=== PATIENT | male | born 1955 | race Asian ===

== ENCOUNTER 2017-09-08 11:03 | Inpatient (IN) | payer BC ==
[~2017-09-08] VITALS: Ht 162.6 cm; Wt 67.8 kg
[2017-09-08 12:45] LABS: BASOPHIL % 0.3 % (0-2); RED CELL DISTRIBUTION WIDTH 13.6 % (11.5-14.5)
[2017-09-08 12:48] LABS: PLATELET COUNT 149 x10^3mcL (130-400)
[2017-09-08 13:09] LABS: T3 TOTAL 0.83 ng/mL
[2017-09-08 13:11] LABS: CK-MB 0.9 ng/mL (0-3.6); FREE T4 1.32 ng/dL (0.76-1.46); FREE THYROXINE INDEX 4.1 ug/dL (1.4-4.5); T4(THYROXINE) 11.6 ug/dL (4.7-13.3)
[2017-09-08 13:22] LABS: CALCIUM 9.2 mg/dL (8.5-10.1); CARBON DIOXIDE 24.6 mmol/L (21-32); CHLORIDE SERUM 92 mmol/L (98-107); CREATININE SERUM 1.2 mg/dL (0.7-1.3); GFR1 > 60 mL/min; GLUCOSE SERUM 120 mg/dL (74-106); SODIUM SERUM 131 mmol/L (136-145)
[2017-09-08 13:33] LABS: ALBUMIN 4.4 g/dL (3.4-5.0); ALKALINE PHOSPHATASE 143 U/L (46-116); ALT/SGPT 69 U/L (16-63); AST/SGOT 31 U/L (15-37); BILIRUBIN TOTAL 2.8 mg/dL (0.20-1.00)
[2017-09-08 13:42] LABS: TOTAL PROTEIN, SERUM 10.1 g/dL (6.4-8.2)
[2017-09-08 14:08] LABS: C REACTIVE PROTEIN 19.8 mg/dL (<=0.9)
[2017-09-08 14:20] LABS: ERYTHROCYTE SED RATE 36 mm/hr (0-20)
[2017-09-08 15:01] VITALS: BP 159/97
[2017-09-08 15:03] VITALS: Ht 162.6 cm; Wt 67.8 kg
[2017-09-08 15:48] LABS: microscopic required? YES; urine erythrocyte TRACE (NEGATIVE)
[2017-09-08 15:51] LABS: AMPHETAMINE QUAL UR NONE DETECTED (NEG <=1000)
[2017-09-08 16:12] LABS: CHOLESTEROL/HDL RATIO 4.7; MAGNESIUM 2.6 mg/dL (1.8-2.4); PHOSPHOROUS 2.7 mg/dL (2.5-4.9)
[2017-09-08 21:20] VITALS: BP 115/72
[2017-09-09 05:54] VITALS: BP 127/67
[2017-09-09 06:53] LABS: BASOPHIL % 0.3 % (0-2); RED CELL DISTRIBUTION WIDTH 13.3 % (11.5-14.5)
[2017-09-09 07:06] LABS: ALKALINE PHOSPHATASE 92 U/L (46-116); ALT/SGPT 40 U/L (16-63); AST/SGOT 23 U/L (15-37); BILIRUBIN TOTAL 1.26 mg/dL (0.20-1.00); CALCIUM 7.6 mg/dL (8.5-10.1); CARBON DIOXIDE 20.9 mmol/L (21-32); CHLORIDE SERUM 107 mmol/L (98-107); CREATININE SERUM 0.9 mg/dL (0.7-1.3); GFR1 > 60 mL/min; GLUCOSE SERUM 91 mg/dL (74-106); MAGNESIUM 2.2 mg/dL (1.8-2.4); PHOSPHOROUS 2.1 mg/dL (2.5-4.9); POTASSIUM SERUM 3.8 mmol/L (3.5-5.1); SODIUM SERUM 138 mmol/L (136-145); TOTAL PROTEIN, SERUM 6.7 g/dL (6.4-8.2)
[2017-09-09 07:07] LABS: ALBUMIN 2.8 g/dL (3.4-5.0)
[2017-09-09 08:08] LABS: PLATELET COUNT 125 x10^3mcL (130-400)
[2017-09-09 08:26] VITALS: BP 129/72
[2017-09-09 13:15] VITALS: BP 133/76
[2017-09-09 17:59] VITALS: BP 133/75
[2017-09-09 21:14] VITALS: BP 124/80
[2017-09-10 05:31] VITALS: BP 134/84
[2017-09-10 06:39] LABS: CALCIUM 8.7 mg/dL (8.5-10.1); CARBON DIOXIDE 27.1 mmol/L (21-32); CHLORIDE SERUM 102 mmol/L (98-107); CREATININE SERUM 1.1 mg/dL (0.7-1.3); GFR1 > 60 mL/min; GLUCOSE SERUM 92 mg/dL (74-106); MAGNESIUM 2.3 mg/dL (1.8-2.4); PHOSPHOROUS 3.7 mg/dL (2.5-4.9); POTASSIUM SERUM 4.2 mmol/L (3.5-5.1); SODIUM SERUM 139 mmol/L (136-145)
[2017-09-10 06:51] LABS: BASOPHIL % 0.3 % (0-2); PLATELET COUNT 164 x10^3mcL (130-400); RED CELL DISTRIBUTION WIDTH 13.3 % (11.5-14.5)
[2017-09-10 08:56] VITALS: BP 134/84
[2017-09-10] MEDS ORDERED: ZITHROMAX TRI-500 MG PO (10:22)
[2017-09-10] MEDS ORDERED: LAC PO (10:23)
[2017-09-10] MEDS ORDERED: CEPL MM (10:23)
[2017-09-10 10:44] VITALS: BP 121/79
[2017-09-10 13:01] VITALS: BP 121/79
[2017-09-10 14:05] VITALS: BP 133/76
== END 2017-09-10 15:51 | disposition home or self-care (01) | DRG 871 ==
LOC: ED 11:03 → DU 13:52 → MU 13:52 → DU 14:46 → MU 09-09 10:43
PROVIDERS: Family Medicine; Specialist
DX: A41.9 Sepsis, unspecified organism (principal); N17.0 Acute kidney failure with tubular necrosis; R65.21 Severe sepsis with septic shock; J69.0 Pneumonitis due to inhalation of food and vomit; E87.1 Hypo-osmolality and hyponatremia; J44.0 Chronic obstructive pulmonary disease with (acute) lower respiratory infection; E86.0 Dehydration; J20.9 Acute bronchitis, unspecified; E83.39 Other disorders of phosphorus metabolism; Z87.891 Personal history of nicotine dependence; Z90.49 Acquired absence of other specified parts of digestive tract
CPT/HCPCS: 36600; 83880; 84439; 87804; 94150; J0456; J0696; J1885; J2405; J2543; J3411; J3475; J3490; J7030; J7042; J7050; J7620; Q0092